=== PATIENT | male | born 1975 | race African-American/Black ===

== ENCOUNTER 2016-07-14 19:43 | Inpatient (IN) | payer SELFPAY ==
[2016-07-14 19:43] VITALS: O2SAT 100
[2016-07-14] MEDS ORDERED: ceFAZolin 2 GM PREMIX 50 ML ONE (19:51)
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
[2016-07-14] MEDS ORDERED: IOHEXOL 350 MG/ML 10 ML VIAL (for RAD DIAG) IV ONE (20:14)
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
[2016-07-14 20:40] LABS: I-STAT SODIUM 138 MMOL/L (138-146)
[2016-07-14 20:41] LABS: AUTOMATED NEUTROPHIL # 9.2 TH/MM3 (1.8-7.7); BASOPHIL # 0.1 TH/MM3 (0-0.2); BASOPHIL % 0.4 % (0.0-2.0); EOSINOPHIL # 0.2 TH/MM3 (0-0.4); EOSINOPHIL % 1.3 % (0.0-4.0); HEMATOCRIT 45.2 % (39.0-51.0); HEMO FLAGS DIFF FINAL; LYMPH % 26.8 % (9.0-44.0); LYMPHOCYTE # 3.8 TH/MM3 (1.0-4.8); MEAN CELL VOLUME 89.2 FL (80.0-100.0); MEAN CORPUSCULAR HEMOGLOBIN 29.9 PG (27.0-34.0); MEAN CORPUSCULAR HGB CONC 33.5 % (32.0-36.0); NEUT % 65.5 % (16.0-70.0); PLATELET COUNT 323 TH/MM3 (150-450); RED BLOOD COUNT 5.06 MIL/MM3 (4.50-5.90); RED CELL DISTRIBUTION WIDTH 13.2 % (11.6-17.2)
[2016-07-14] MEDS ORDERED: POTASSIUM PHOSPHATE MONOBASIC 500 MG TAB PO/TUBE PRN (20:45)
[2016-07-14] MEDS ORDERED: MAGNESIUM SULFATE INJ 4 GM in SODIUM CHLORIDE 0.9% INJ 92 ML IV PRN (20:45)
[2016-07-14] MEDS ORDERED: POTASSIUM PHOSPHATE MONOBASIC 500 MG TAB PO PRN (20:45)
[2016-07-14] MEDS ORDERED: MAGNESIUM SULFATE INJ 2 GM in SODIUM CHLORIDE 0.9% INJ 96 ML IV PRN (20:45)
[2016-07-14] MEDS ORDERED: ONDANSETRON HCL 4 MG/2 ML VIAL IV PRN (20:45)
[2016-07-14] MEDS ORDERED: POTASSIUM PHOSPHATE INJ 30 MMOL in SODIUM CHLOR 0.9% 250 ML INJ 250 ML IV PRN (20:45)
[2016-07-14] MEDS ORDERED: CHLORHEXIDINE GLUCONATE 2 % 1 PACK (2 CLOTHS) TOP PRN (20:45)
[2016-07-14] MEDS ORDERED: SODIUM PHOSPHATE INJ 30 MMOL in SODIUM CHLOR 0.9% 250 ML INJ 240 ML IV PRN (20:45)
[2016-07-14] MEDS ORDERED: POTASSIUM CHLOR 40 MEQ PREMIX 100 ML IV PRN ×2 (20:45)
[2016-07-14] MEDS ORDERED: POTASSIUM CHLOR 20 MEQ PREMIX 100 ML IV PRN ×2 (20:45)
[2016-07-14] MEDS ORDERED: MISCELLANEOUS NURSING INFORMATION XX SCH (20:45)
[2016-07-14] MEDS ORDERED: MAGNESIUM OXIDE 400 MG TAB PO PRN (20:45)
[2016-07-14] MEDS ORDERED: SODIUM CHLORIDE 0.9% FLUSH 5 ML FLUSH IV FLUSH PRN (20:45)
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
[2016-07-14 20:50] VITALS: PULSE 103
[2016-07-14 20:53] LABS: APTT (PATIENT) 21.9 SEC (24.3-30.1); PROTHROMBIN TIME - PATIENT 10.7 SEC (9.8-11.6)
[2016-07-14] MEDS: DOCUSATE SODIUM 100 MG CAP PO SCH (21:00)
[2016-07-14] MEDS: SODIUM CHLOR 0.9% 1000 ML INJ 1,000 ML IV SCH (21:45)
[2016-07-14] MEDS: SODIUM CHLORIDE 0.9% FLUSH 5 ML FLUSH IV FLUSH SCH (21:48)
[2016-07-14 22:00] VITALS: PULSE 105
[2016-07-14 22:38] VITALS: BP 113/60; PULSE 109; RESP 20; TEMP 98.6; O2SAT 100
[2016-07-14 23:00] VITALS: BP 119/83; PULSE 108; RESP 21; TEMP 98.6; O2SAT 100
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
[2016-07-15] VITALS (11 sets, daily range): BP systolic 125–153; BP diastolic 75–96; PULSE 101–127; RESP 18–24; TEMP 98–99.6; O2SAT 93–100
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
[2016-07-15] MEDS ORDERED: CHLORHEXIDINE GLUCONATE 2 % 1 PACK (2 CLOTHS) TOP SCH (04:00)
[2016-07-15] MEDS: FAMOTIDINE 20 MG TAB PO SCH ×3 (04:17→20:36)
[2016-07-15 04:34] LABS: AUTOMATED NEUTROPHIL # 15.5 TH/MM3 (1.8-7.7); BASOPHIL % 0.1 % (0.0-2.0); HEMATOCRIT 44.6 % (39.0-51.0); HEMO FLAGS DIFF FINAL; LYMPH % 5.3 % (9.0-44.0); MEAN CELL VOLUME 89.6 FL (80.0-100.0); MEAN CORPUSCULAR HEMOGLOBIN 29.6 PG (27.0-34.0); MONO % 9.8 % (0.0-8.0); NEUT % 84.8 % (16.0-70.0); PLATELET COUNT 274 TH/MM3 (150-450); RED BLOOD COUNT 4.98 MIL/MM3 (4.50-5.90); RED CELL DISTRIBUTION WIDTH 13.1 % (11.6-17.2); WHITE BLOOD COUNT 18.3 TH/MM3 (4.0-11.0)
[2016-07-15 04:55] LABS: BICARBONATE 24.1 MEQ/L (21.0-32.0); POTASSIUM 3.6 MEQ/L (3.5-5.1)
--- NOTE | 2016-07-15 06:21 | RADRPT ---
EXAM DATE/TIME: 07/15/2016 05:01 [facility] COMPARISON: CHEST SINGLE AP, July 14, 2016, 19:39. INDICATIONS : Follow up trauma. Respiratory status. MEDICAL HISTORY : None. SURGICAL HISTORY : None. ENCOUNTER: Subsequent ACUITY: 3 days PAIN SCORE: Non-responsive. LOCATION: Bilateral chest FINDINGS: Single AP view of the chest. Persistent right apical pulmonary consolidation. Left lung clear. No derrek dence of pleural effusion or pneumothorax. CONCLUSION: Persistent right upper lung consolidation. Krishna Perrin MD on July 15, 2016 at 6:19 Board Certified Radiologist. This report was verified electronically.
[2016-07-15] MEDS ORDERED: ACETAMINOPHEN 325 MG TAB PO PRN (07:15)
[2016-07-15] MEDS: METHOCARBAMOL 500 MG TAB PO SCH ×3 (07:30→20:36)
[2016-07-15] MEDS: SODIUM CHLOR 0.9% 1000 ML INJ 1,000 ML IV SCH ×2 (08:57→20:27)
[2016-07-15] MEDS: SODIUM CHLORIDE 0.9% FLUSH 5 ML FLUSH IV FLUSH SCH ×2 (08:57→20:37)
[2016-07-15] MEDS: DOCUSATE SODIUM 100 MG CAP PO SCH ×2 (08:58→20:36)
[2016-07-15] MEDS: LIDOCAINE HCL 5% PATCH TD SCH (08:59)
[2016-07-15] MEDS ORDERED: ACETAMINOPHEN/HYDROcodone 325 MG/5 MG TAB PO PRN (12:45)
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
--- NOTE | 2016-07-15 16:07 | HHI.PR ---
Subjective Subjective Notes Feeling better-pain left shoulder Objective Vitals/I&O Vital Signs Date Time Temp Pulse Resp B/P Pulse Ox O2 Delivery O2 Flow Rate FiO2 07/15/16 12:55 99.4 106 18 125/95 100 07/15/16 12:55 Room Air 07/14/16 19:43 4.00 Labs Laboratory Tests Test 07/14/16 07/14/16 07/15/16 19:50 21:03 04:13 White Blood Count 14.0 18.3 Red Blood Count 5.06 4.98 Hemoglobin 15.1 14.7 Bedside Hemoglobin 16.0 Hematocrit 45.2 44.6 Bedside Hematocrit 47.0 Mean Corpuscular Volume 89.2 89.6 Mean Corpuscular Hemoglobin 29.9 29.6 Mean Corpuscular Hemoglobin 33.5 33.0 Concent Red Cell Distribution Width 13.2 13.1 Platelet Count 323 274 Mean Platelet Volume 9.0 8.1 Neutrophils (%) (Auto) 65.5 84.8 Lymphocytes (%) (Auto) 26.8 5.3 Monocytes (%) (Auto) 6.0 9.8 Eosinophils (%) (Auto) 1.3 0.0 Basophils (%) (Auto) 0.4 0.1 Neutrophils # (Auto) 9.2 15.5 Lymphocytes # (Auto) 3.8 1.0 Monocytes # (Auto) 0.8 1.8 Eosinophils # (Auto) 0.2 0.0 Basophils # (Auto) 0.1 0.0 CBC Comment DIFF FINAL DIFF FINAL Differential Comment Prothrombin Time 10.7 Prothromb Time International 1.0 Ratio Activated Partial 21.9 Thromboplast Time Bedside Sodium 138 Bedside Potassium 5.0 Bedside Chloride 100 Bedside Blood Urea Nitrogen 17 Bedside Creatinine 1.3 Bedside Glucose 158 Phosphorus Level 3.1 Ethyl Alcohol Level LESS THAN 3 Blood Type O POSITIVE Antibody Screen NEGATIVE Nasal Screen MRSA (PCR) NEGATIVE Sodium Level 138 Potassium Level 3.6 Chloride Level 102 Carbon Dioxide Level 24.1 Anion Gap 12 Blood Urea Nitrogen 10 Creatinine 1.29 Estimat Glomerular Filtration 58 Rate Random Glucose 106 Calcium Level 8.8 Cardiovascular: Regular Lungs: Clear Abdomen: Non-distended Extremities: No edema A/P Assessment and Plan C7 fx--[place] J collar left scapula fx-non surgical pain control IS FU CXR ambulate Kim Godoy MD Jul 15, 2016 16:07
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
[2016-07-15] MEDS: BACITRACIN/POLYMYXIN B OINT 0.9 GM PACKET TOP SCH (20:00)
[2016-07-15] MEDS: MAGNESIUM HYDROXIDE SUSP 30 ML CUP PO SCH (20:36)
[2016-07-15] MEDS: REMOVE OLD PATCH T-DERMAL SCH (20:39)
[2016-07-16 03:36] VITALS: BP 138/78; PULSE 96; RESP 18; TEMP 98.6; O2SAT 100
[2016-07-16 05:09] LABS: HEMATOCRIT 41.3 % (39.0-51.0); MEAN CELL VOLUME 88.9 FL (80.0-100.0); MEAN CORPUSCULAR HEMOGLOBIN 29.6 PG (27.0-34.0); MEAN CORPUSCULAR HGB CONC 33.4 % (32.0-36.0); PLATELET COUNT 260 TH/MM3 (150-450); RED BLOOD COUNT 4.65 MIL/MM3 (4.50-5.90); RED CELL DISTRIBUTION WIDTH 13.3 % (11.6-17.2); REVIEW FLAG FINAL; WHITE BLOOD COUNT 14.9 TH/MM3 (4.0-11.0)
[2016-07-16 05:29] LABS: BICARBONATE 30.4 MEQ/L (21.0-32.0); MAGNESIUM 2.4 MG/DL (1.5-2.5); POTASSIUM 3.8 MEQ/L (3.5-5.1)
[2016-07-16] MEDS: METHOCARBAMOL 500 MG TAB PO SCH ×3 (06:00→20:58)
--- NOTE | 2016-07-16 07:42 | RADRPT ---
EXAM DATE/TIME: 07/16/2016 06:16 [facility] COMPARISON: CHEST SINGLE AP, July 15, 2016, 5:01. INDICATIONS : Follow up chest trauma, short of breath, pain right chest MEDICAL HISTORY : trauma SURGICAL HISTORY : None. ENCOUNTER: Subsequent ACUITY: 4 - 6 days PAIN SCORE: 10/10 LOCATION: Right chest FINDINGS: A single view of the chest demonstrates the lungs to be symmetrically aerated without evidence of mas s, infiltrate or effusion. The right apical consolidation has completely resolved. No pneumothorax. T he cardiomediastinal contours are unremarkable. Osseous structures are intact. CONCLUSION: 1. Complete resolution of the right apical consolidation. Tony Phillips Jr., MD on July 16, 2016 at 7:38 Board Certified Radiologist. This report was verified electronically.
[2016-07-16] MEDS ORDERED: BISACODYL EC 5 MG TABEC PO ONE (07:45)
[2016-07-16] MEDS ORDERED: BISACODYL 10 MG SUPP RECTAL ONE (07:45)
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
[2016-07-16 08:00] VITALS: BP 116/69; PULSE 90; RESP 16; TEMP 97.8; O2SAT 96
[2016-07-16] MEDS: SODIUM CHLOR 0.9% 1000 ML INJ 1,000 ML IV SCH (08:22)
[2016-07-16] MEDS: BACITRACIN/POLYMYXIN B OINT 0.9 GM PACKET TOP SCH ×2 (09:00→21:00)
[2016-07-16] MEDS: FAMOTIDINE 20 MG TAB PO SCH ×2 (09:10→20:58)
[2016-07-16] MEDS: LIDOCAINE HCL 5% PATCH TD SCH (09:10)
[2016-07-16] MEDS: DOCUSATE SODIUM 100 MG CAP PO SCH ×2 (09:11→20:58)
[2016-07-16] MEDS: SODIUM CHLORIDE 0.9% FLUSH 5 ML FLUSH IV FLUSH SCH ×2 (09:11→20:58)
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
[2016-07-16 12:00] VITALS: BP 118/81; PULSE 107; RESP 18; TEMP 96.8; O2SAT 98
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
[2016-07-16 16:00] VITALS: BP 123/84; PULSE 114; RESP 18; TEMP 99.2; O2SAT 99
[2016-07-16 20:00] VITALS: BP 147/84; PULSE 105; RESP 24; TEMP 98.7; O2SAT 99
[2016-07-16] MEDS: MAGNESIUM HYDROXIDE SUSP 30 ML CUP PO SCH (20:58)
[2016-07-16] MEDS: REMOVE OLD PATCH T-DERMAL SCH (20:58)
[2016-07-17] VITALS: BP 147/99; PULSE 104; RESP 20; TEMP 98.8; O2SAT 100
[2016-07-17 04:00] VITALS: BP 128/52; PULSE 101; RESP 22; TEMP 98.2; O2SAT 99
[2016-07-17] MEDS: METHOCARBAMOL 500 MG TAB PO SCH ×4 (05:16→22:08)
[2016-07-17 08:00] VITALS: BP 135/83; PULSE 114; RESP 19; TEMP 99.4; O2SAT 100
[2016-07-17] MEDS: DOCUSATE SODIUM 100 MG CAP PO SCH ×2 (08:58→20:55)
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
[2016-07-17] MEDS: FAMOTIDINE 20 MG TAB PO SCH ×2 (11:57→20:56)
[2016-07-17] MEDS: SODIUM CHLORIDE 0.9% FLUSH 5 ML FLUSH IV FLUSH SCH ×2 (11:58→20:55)
[2016-07-17] MEDS: LIDOCAINE HCL 5% PATCH TD SCH (11:58)
[2016-07-17] MEDS: BACITRACIN/POLYMYXIN B OINT 0.9 GM PACKET TOP SCH ×2 (11:59→20:56)
[2016-07-17 12:00] VITALS: BP 126/77; PULSE 98; RESP 18; TEMP 97.3; O2SAT 100
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
[2016-07-17 16:00] VITALS: BP 132/81; PULSE 105; RESP 18; TEMP 99.1; O2SAT 100
[2016-07-17 20:00] VITALS: BP 137/91; PULSE 84; RESP 18; TEMP 99.1; O2SAT 97
[2016-07-17] MEDS: MAGNESIUM HYDROXIDE SUSP 30 ML CUP PO SCH (20:55)
[2016-07-17] MEDS: REMOVE OLD PATCH T-DERMAL SCH (20:59)
[2016-07-18] VITALS: BP 134/77; PULSE 101; RESP 18; TEMP 97.1; O2SAT 97
[2016-07-18] MEDS: METHOCARBAMOL 500 MG TAB PO SCH ×3 (06:00→14:55)
[2016-07-18 08:00] VITALS: BP 147/94; PULSE 102; RESP 16; TEMP 98; O2SAT 100
[2016-07-18] MEDS: DOCUSATE SODIUM 100 MG CAP PO SCH (08:16)
[2016-07-18] MEDS: FAMOTIDINE 20 MG TAB PO SCH (10:37)
[2016-07-18] MEDS: LIDOCAINE HCL 5% PATCH TD SCH (10:38)
[2016-07-18] MEDS: BACITRACIN/POLYMYXIN B OINT 0.9 GM PACKET TOP SCH (10:38)
[2016-07-18] MEDS: SODIUM CHLORIDE 0.9% FLUSH 5 ML FLUSH IV FLUSH SCH (10:38)
[2016-07-18 12:00] VITALS: BP 121/72; PULSE 97; RESP 16; TEMP 98; O2SAT 98
[2016-07-18] MEDS ORDERED: DOCU1CAP39 PO (13:40)
[2016-07-18] MEDS ORDERED: MILKSUS PO (13:40)
[2016-07-18] MEDS ORDERED: METH500T3 PO (14:01)
[2016-07-18] MEDS ORDERED: LIDO5DIS35 TD (14:01)
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
== END 2016-07-18 20:31 | disposition home or self-care (01) | DRG 86 ==
LOC: NEPI 19:43 → EDBD 20:00 → NEDA 20:00 → N03A 20:54 → N06A 07-15 14:56
PROVIDERS: ADMIT Surgery Trauma Surgery; ATTEND Surgery Trauma Surgery
DX: S02.19XA Other fracture of base of skull, initial encounter for closed fracture (principal); S27.322A Contusion of lung, bilateral, initial encounter; S12.401A Unspecified nondisplaced fracture of fifth cervical vertebra, initial encounter for closed fracture; S12.601A Unspecified nondisplaced fracture of seventh cervical vertebra, initial encounter for closed fracture; S42.112A Displaced fracture of body of scapula, left shoulder, initial encounter for closed fracture; S06.0X9A Concussion with loss of consciousness of unspecified duration, initial encounter; V49.9XXA Car occupant (driver) (passenger) injured in unspecified traffic accident, initial encounter; Y93.89 Activity, other specified; Y92.410 Unspecified street and highway as the place of occurrence of the external cause; Z87.891 Personal history of nicotine dependence; R73.9 Hyperglycemia, unspecified; S00.01XA Abrasion of scalp, initial encounter
CPT/HCPCS: 70450; 71010; 71260; 72125; 72170; 74177; 80048; 80307; 82435; 82565; 82947; 83735; 84100; 84132; 84295; 84520; 85025; 85027; 85610; 85730; 86850; 86900; 86901; 87641; 90471; 94150; 94640; 94667; 94668; 96374; 96375; 99291; A0431-QM-SH; A0436-QM-SH; G0390; J0690; J3010; J7030; L0150; L0172; Q9967